=== PATIENT | male | born 1960 | race Caucasian/White ===

== ENCOUNTER 2017-05-08 08:17 | Observation (INO) | payer MEDICAID ==
[2017-05-08] MEDS ORDERED: ASPIRIN 81 MG PO STA (08:30)
[2017-05-08] MEDS ORDERED: NITROGLYCERIN OINT 1 INCH/GM PACKET TOPICAL STA (08:30)
--- NOTE | 2017-05-08 08:33 | ED ---
General Adult HPI - General Chief complaint: Chest Pain Stated complaint: Chest Pain Time Seen by Provider: 05/08/17 08:20 Source: patient, RN notes reviewed Mode of arrival: EMS Limitations: no limitations - History of Present Illness Initial comments: This is a 56-year-old male who presents emergency Department complaining that he woke up this morning had chest pain radiated to his arm. Patient states she also became very sweaty last about 15 minutes until the ambulance got there. Patient states when he had nitroglycerin took the pain away completely. Patient states currently is chest pain-free. Patient states he is a smoker. Patient states she also has a strong family history with his mother having heart disease at a very young age. Patient denies any recent fever chills or cough. Patient denies any history of high blood pressure high cholesterol or diabetes however the patient does admit that he doesn't go see his doctor. Patient states she also drinks at least a 12 pack of beer a day. - Related Data Home Medications Medication Instructions Recorded Confirmed Aspirin 975 mg PO ONCE PRN 05/08/17 05/08/17 Cyclobenzaprine [Flexeril] 10 mg PO DAILY PRN 05/08/17 05/08/17 HYDROcodone/APAP 10-325MG [[place] 1 tab PO DAILY PRN 05/08/17 05/08/17 10-325] Potassium 99 mg PO DAILY 05/08/17 05/08/17 Allergies Allergy/AdvReac Type Severity Reaction Status Date / Time No Known Allergies Allergy Verified 05/08/17 08:56 Review of Systems ROS Statement: Those systems with pertinent positive or pertinent negative responses have been documented in the HPI. ROS Other: All systems not noted in ROS Statement are negative. Past Medical History Past Medical History: Osteoarthritis (OA) Additional Past Medical History / Comment(s): bulging discs lumbar area & also neck problems-tingling lt leg, lt leg spasms History of Any Multi-Drug Resistant Organisms: None Reported Past Surgical History: Back Surgery Additional Past Surgical History / Comment(s): 08/04/15 Posterior lumbar decompression fusion transforaminal lumbar inerbody fusion L3-4, L4-5 with NIM. Other surgical HX: 02-15-15 LAMINECTOMY Additional Past Anesthesia/Blood Transfusion Reaction / Comment(s): no family problems that he's aware of. no hx blood transfusion Past Psychological History: No Psychological Hx Reported Smoking Status: Current every day smoker Past Alcohol Use History: Daily Past Drug Use History: Marijuana - Past Family History Mother Family Medical History: Cancer, CVA/TIA, Diabetes Mellitus, Myocardial Infarction ([place]) Additional Family Medical History / Comment(s): Mother in her 60's. Father History Unknown: Yes Family Medical History: No Reported History Additional Family Medical History / Comment(s): Father is 92 yrs old and healthy General Exam - General Exam Comments Initial Comments: GENERAL: Patient is well-developed and well-nourished. Patient is nontoxic and well- hydrated and is in no acute distress. ENT: Neck is soft and supple. No significant lymphadenopathy is noted. Oropharynx is clear. Moist mucous membranes. Neck has full range of motion without eliciting any pain. EYES: The sclera were anicteric and conjunctiva were pink and moist. Extraocular movements were intact and pupils were equal round and reactive to light. Eyelids were unremarkable. PULMONARY: Unlabored respirations. Good breath sounds bilaterally. No audible rales rhonchi or wheezing was noted. CARDIOVASCULAR: There is a regular rate and rhythm without any murmurs gallops or rubs. ABDOMEN: Soft and nontender with normal bowel sounds. No palpable organomegaly was noted. There is no palpable pulsatile mass. SKIN: Skin is clear with no lesions or rashes and otherwise unremarkable. NEUROLOGIC: Patient is alert and oriented x3. Cranial nerves II through XII are grossly intact. Motor and sensory are also intact. Normal speech, volume and content. Symmetrical smile. MUSCULOSKELETAL: Normal extremities with adequate strength and full range of motion. No lower extremity swelling or edema. No calf tenderness. LYMPHATICS: No significant lymphadenopathy is noted PSYCHIATRIC: Normal psychiatric evaluation. Normal interpersonal interactions appears functionally intact in deals appropriately with others. No signs of depression. No signs of anxiety. 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 Patient's chest x-ray shows no acute abnormality. I started the patient on heparin because of his significant symptoms and risk factors. I spoke with Dr. Jimenez he agreed to admit the patient admitted the patient I consult to cardiology continued heparin and aspirin and Nitropaste on the floor. - Lab Data Result diagrams: 05/08/17 08:34 05/08/17 09:13 Lab Results 05/08/17 05/08/17 05/08/17 Range/Units 08:34 09:13 09:13 WBC 6.3 (3.8-10.6) k/uL RBC 4.99 (4.30-5.90) m/uL Hgb 15.7 (13.0-17.5) gm/dL Hct 47.9 (39.0-53.0) % MCV 95.9 (80.0-100.0) fL MCH 31.4 (25.0-35.0) pg MCHC 32.8 (31.0-37.0) g/dL RDW 13.2 (11.5-15.5) % Plt Count 226 (150-450) k/uL Neutrophils % 59 % Lymphocytes % 27 % Monocytes % 5 % Eosinophils % 5 % Basophils % 1 % Neutrophils # 3.7 (1.3-7.7) k/uL Lymphocytes # 1.7 (1.0-4.8) k/uL Monocytes # 0.3 (0-1.0) k/uL Eosinophils # 0.3 (0-0.7) k/uL Basophils # 0.1 (0-0.2) k/uL PT (9.0-12.0) sec INR (<1.2) APTT (22.0-30.0) sec Sodium 139 (137-145) mmol/L Potassium 4.6 (3.5-5.1) mmol/L Chloride 104 (98-107) mmol/L Carbon Dioxide 26 (22-30) mmol/L Anion Gap 9 mmol/L BUN 18 (9-20) mg/dL Creatinine 0.90 (0.66-1.25) mg/dL Est GFR (MDRD) Af Amer >60 (>60 ml/min/1.73 sqM) Est GFR (MDRD) Non-Af >60 (>60 ml/min/1.73 sqM) Glucose 108 H (74-99) mg/dL Calcium 10.0 (8.4-10.2) mg/dL Magnesium 1.9 (1.6-2.3) mg/dL Total Bilirubin 0.4 (0.2-1.3) mg/dL AST 35 (17-59) U/L ALT 56 (21-72) U/L Alkaline Phosphatase 68 (38-126) U/L Total Creatine Kinase 98 (55-170) U/L CK-MB (CK-2) 0.7 (0.0-2.4) ng/mL CK-MB (CK-2) Rel Index 0.7 Troponin I <0.012 (0.000-0.034) ng/mL Total Protein 7.0 (6.3-8.2) g/dL Albumin 4.3 (3.5-5.0) g/dL 05/08/17 Range/Units 09:13 WBC (3.8-10.6) k/uL RBC (4.30-5.90) m/uL Hgb (13.0-17.5) gm/dL Hct (39.0-53.0) % MCV (80.0-100.0) fL MCH (25.0-35.0) pg MCHC (31.0-37.0) g/dL RDW (11.5-15.5) % Plt Count (150-450) k/uL Neutrophils % % Lymphocytes % % Monocytes % % Eosinophils % % Basophils % % Neutrophils # (1.3-7.7) k/uL Lymphocytes # (1.0-4.8) k/uL Monocytes # (0-1.0) k/uL Eosinophils # (0-0.7) k/uL Basophils # (0-0.2) k/uL PT 10.2 (9.0-12.0) sec INR 1.0 (<1.2) APTT 22.7 (22.0-30.0) sec Sodium (137-145) mmol/L Potassium (3.5-5.1) mmol/L Chloride (98-107) mmol/L Carbon Dioxide (22-30) mmol/L Anion Gap mmol/L BUN (9-20) mg/dL Creatinine (0.66-1.25) mg/dL Est GFR (MDRD) Af Amer (>60 ml/min/1.73 sqM) Est GFR (MDRD) Non-Af (>60 ml/min/1.73 sqM) Glucose (74-99) mg/dL Calcium (8.4-10.2) mg/dL Magnesium (1.6-2.3) mg/dL Total Bilirubin (0.2-1.3) mg/dL AST (17-59) U/L ALT (21-72) U/L Alkaline Phosphatase (38-126) U/L Total Creatine Kinase (55-170) U/L CK-MB (CK-2) (0.0-2.4) ng/mL CK-MB (CK-2) Rel Index Troponin I (0.000-0.034) ng/mL Total Protein (6.3-8.2) g/dL Albumin (3.5-5.0) g/dL Critical Care Time Critical Care Time: Yes Total Critical Care Time: 35 Disposition Clinical Impression: Unstable angina pectoris Disposition: ADMITTED IP TO THIS HOSP Referrals: Walter Jimenez MD [Primary Care Provider] - 1-2 days Time of Disposition: 11:26
[2017-05-08 09:00] LABS: Basophils # (A) 0.1 k/uL (0-0.2); Basophils % (A) 1 %; Eosinophils # (A) 0.3 k/uL (0-0.7); Eosinophils % (A) 5 %; HCT 47.9 % (39.0-53.0); HGB 15.7 gm/dL (13.0-17.5); Lymphocytes # (A) 1.7 k/uL (1.0-4.8); Lymphocytes % (A) 27 %; MCH 31.4 pg (25.0-35.0); MCHC 32.8 g/dL (31.0-37.0); MCV 95.9 fL (80.0-100.0); Mean Platelet Volume 7.5; Monocytes # (A) 0.3 k/uL (0-1.0); Monocytes % (A) 5 %; Neutrophils # (A) 3.7 k/uL (1.3-7.7); Neutrophils % (A) 59 %; Platelet Count 226 k/uL (150-450); RBC 4.99 m/uL (4.30-5.90); RDW 13.2 % (11.5-15.5); WBC 6.3 k/uL (3.8-10.6)
--- NOTE | 2017-05-08 09:13 | XR ---
EXAMINATION TYPE: XR chest 2V DATE OF EXAM: 05/08/2017 COMPARISON: Prior chest x-ray 07/26/2015 HISTORY: Chest pain TECHNIQUE: Frontal and lateral views of the chest are obtained. FINDINGS: There is no focal air space opacity, pleural effusion, or pneumothorax seen. The cardiac silhouette size is within normal limits. There are overlying cardiac leads. There is mild spinal curv ature. The osseous structures are intact. IMPRESSION: No acute cardiopulmonary process.
[2017-05-08] MEDS ORDERED: NICOTINE 21MG/24HR PATCH TRANSDERM STA (09:34)
[2017-05-08 09:37] LABS: ALT 56 U/L (21-72); AST 35 U/L (17-59); Albumin 4.3 g/dL (3.5-5.0); Alkaline Phosphatase 68 U/L (38-126); Anion Gap 9 mmol/L; Blood Urea Nitrogen 18 mg/dL (9-20); Carbon Dioxide 26 mmol/L (22-30); Chloride 104 mmol/L (98-107); Glucose 108 mg/dL (74-99); Magnesium 1.9 mg/dL (1.6-2.3); Sodium 139 mmol/L (137-145); Total Bilirubin 0.4 mg/dL (0.2-1.3)
[2017-05-08 09:38] LABS: Potassium 4.6 mmol/L (3.5-5.1)
[2017-05-08 09:56] LABS: Creatine Kinase 98 U/L (55-170)
[2017-05-08 09:58] LABS: Partial Thromboplastin Time 22.7 sec (22.0-30.0); Prothrombin Time 10.2 sec (9.0-12.0)
[2017-05-08 10:09] LABS: Creatine Kinase MB 0.7 ng/mL (0.0-2.4); Troponin I <0.012 ng/mL (0.000-0.034)
[2017-05-08 10:49] VITALS: RESP 18
[2017-05-08] MEDS ORDERED: NITROGLYCERIN SL TABS 0.4 MG TAB SUBLINGUAL PRN (11:26)
[2017-05-08] MEDS ORDERED: HEPARIN SODIUM,PORCINE 5,000 UNIT/ML 1 ML VIAL IV ONE (11:28)
[2017-05-08] MEDS ORDERED: HEPARIN SOD,PORK IN 0.45% NACL 25,000 UNIT in 0.45% NACL 1 500ML.BAG IV SCH (11:45)
--- NOTE | 2017-05-08 13:01 | P.HPIM ---
History of Present Illness H&P Date: 05/08/17 Chief Complaint: Chest pain and right-sided numbness. This is a 56-year-old male one of my patient with a previous medical history significant for chronic tobacco use and dependence and COPD, history of chronic alcohol use and dependence along with a chronic low back pain status post laminectomy of L4-L5 followed by a decompression laminectomy with fusion of L3-L4 L4-L5 that was done back in 2 years ago, patient has not been following up with me in the office for quite some time, patient was driving to work in the morning when he developed to have right-sided chest tightness associated with right upper extremity and right lower extremity numbness and he was having legs cramps the night brfore every hour along with that, ended up going to the ER at [facility] had an EKG that showed normal sinus rhythm and no acute ischemic changes, cardiac enzymes are negative he had slight elevation of the his blood pressure on initial evaluation he was given nitroglycerin under the tongue 2 with relief of his pain and numbness and patient was admitted to the hospital for further evaluation. Patient stated that his last drink about 4 days ago he had 12 case of beer. Review of Systems Constitutional: Denies chronic headaches, Denies chronic pain, Denies lethargy, Denies weight gain, Denies weight loss Eyes: denies blurred vision, denies bulging eye, denies decreased vision, denies diplopia Ears: deny: decreased hearing Ears, nose, mouth and throat: Denies dysphagia, Denies neck lump, Denies swelling in throat, Denies sore throat, Denies vertigo Cardiovascular: Reports chest pain, Reports decreased exercise tolerance, Reports dyspnea on exertion, Reports high blood pressure, Denies phlebitis, Denies rapid heart beat, Denies shortness of breath, Denies syncope Respiratory: Denies congestion, Denies cough, Denies cough with sputum, Denies home oxygen, Denies sleep apnea, Denies snoring, Denies wheezing Gastrointestinal: Denies abdominal pain, Denies bloating, Denies BRBPR, Denies early satiety, Denies excessive gas, Denies heartburn, Denies melena, Denies nausea, Denies vomiting Genitourinary: Denies dysuria, Denies nocturia, Denies polyuria Musculoskeletal: Reports leg numbness/tingling, Reports low back pain, Reports shooting leg pain, Denies myalgias Musculoskeletal: absent: ankle pain, ankle stiffness, ankle swelling, elbow pain , elbow stiffness, elbow swelling, foot pain, foot stiffness, foot swelling, hand pain, hand stiffness, hand swelling, hip pain, hip stiffness, hip swelling , knee pain, knee stiffness, knee swelling, shoulder pain, shoulder stiffness, shoulder swelling, wrist pain, wrist stiffness, wrist swelling Integumentary: Denies pruritus, Denies rash Neurological: Denies numbness, Denies weakness Psychiatric: Denies anxiety, Denies depression Endocrine: Denies fatigue, Denies weight change Past Medical History Past Medical History: Hyperlipidemia, Hypertension, Musculoskeletal Disorder, Osteoarthritis (OA) Additional Past Medical History / Comment(s): bulging discs lumbar area & also neck problems-tingling lt leg, lt leg spasms History of Any Multi-Drug Resistant Organisms: None Reported Past Surgical History: Back Surgery Additional Past Surgical History / Comment(s): 08/04/15 Posterior lumbar decompression fusion transforaminal lumbar inerbody fusion L3-4, L4-5 with NIM. Other surgical HX: 02-15-15 LAMINECTOMY Additional Past Anesthesia/Blood Transfusion Reaction / Comment(s): no family problems that he's aware of. no hx blood transfusion Past Psychological History: No Psychological Hx Reported Smoking Status: Current every day smoker (Patient smoked about one and half pack -a-day smoker for many years.) Past Alcohol Use History: Daily, Heavy (Patient drinks 12 case of beer very frequently) Past Drug Use History: Marijuana - Past Family History Mother Family Medical History: Cancer, CVA/TIA (Mother in her 60s from the acute CVA she did have 3 MIs and 3 CVA.), Diabetes Mellitus, Myocardial Infarction ([place] ) Additional Family Medical History / Comment(s): Mother in her 60's. Father History Unknown: Yes Family Medical History: No Reported History (Father is 94-year-old and is healthy.) Additional Family Medical History / Comment(s): Father is 92 yrs old and healthy Brother(s) Family Medical History: No Reported History (Patient has 2 brothers no major medical problems.) Sister(s) Family Medical History: No Reported History (Patient has 3 sisters one of them fell and ended up paraplegic due to spinal cord injury.) Son(s) Family Medical History: No Reported History (Patient has one son no major medical problems.) Daughter(s) Family Medical History: No Reported History (She has 2 step daughters no major medical problems.) Medications and Allergies Home Medications Medication Instructions Recorded Confirmed Type Aspirin 975 mg PO ONCE PRN 05/08/17 05/08/17 History Cyclobenzaprine [Flexeril] 10 mg PO DAILY PRN 05/08/17 05/08/17 History HYDROcodone/APAP 10-325MG [[place] 1 tab PO DAILY PRN 05/08/17 05/08/17 History 10-325] Potassium 99 mg PO DAILY 05/08/17 05/08/17 History Allergies Allergy/AdvReac Type Severity Reaction Status Date / Time No Known Allergies Allergy Verified 05/08/17 08:56 Physical Exam Vitals: Vital Signs Temp Pulse Pulse Resp BP Pulse Ox 05/08/17 12:11 74 18 102/74 97 05/08/17 10:43 73 18 102/68 99 05/08/17 09:55 71 19 114/73 98 05/08/17 08:40 70 05/08/17 08:18 98.2 F 70 18 137/77 Intake and Output 05/07/17 05/08/17 05/08/17 22:59 06:59 14:59 Other: Weight 74.843 kg Patient Weight 05/09/17 06:59 Weight 74.843 kg - Constitutional General appearance: average body habitus, no acute distress - EENT Eyes: anicteric sclerae, EOMI, PERRLA, ptosis, no scleral icterus, normal appearance ENT: hearing grossly normal, NA/AT, normal oropharynx, no thrush, no tonsillar exudates, no tonsillar swelling Ears: bilateral: normal - Neck Neck: no lymphadenopathy, normal ROM, no rigidity, no stridor, no thyromegaly Carotids: bilateral: upstroke normal Thyroid: bilateral: normal size - Respiratory Respiratory: bilateral: diminished, prolonged expiration, negative: dullness, rales, rhonchi, wheezing - Cardiovascular Rhythm: regular Heart sounds: normal: S1, S2 Abnormal Heart Sounds: no S3 Gallop, no S4 Gallop, no click - Gastrointestinal General gastrointestinal: normal bowel sounds, soft, no splenomegaly, no tenderness, no umbilical hernia, no ventral hernia - Integumentary Integumentary: normal, normal turgor - Musculoskeletal Musculoskeletal: strength equal bilaterally - Psychiatric Psychiatric: A&O x's 3, appropriate affect, intact judgment & insight Results CBC & Chem 7: 05/08/17 08:34 05/08/17 09:13 Labs: Abnormal Lab Results - Last 24 Hours (Table) 05/08/17 Range/Units 09:13 Glucose 108 H (74-99) mg/dL Thrombosis Risk Factor Assmnt - DVT/VTE Prophylaxis DVT/VTE Prophylaxis: Pharmacologic Prophylaxis ordered Assessment and Plan Assessment: Assessment and plan: 1. Right-sided chest pain with right sided numbness. This does not appear to be cardiac however the patient does appear to have a few risk factors for heart disease, EKG does not show any evidence of acute changes, her enzymes are negative, keep the patient on aspirin 325 mg once every day, nitroglycerin paste 1 inch every 6 hours, heparin drip for now, if the cardiac enzymes are negative patient will go for stress test tomorrow morning. Patient was counseled about risk factor modifications and total lifestyle changes including smoking cessation and abstinence from alcohol. 2. Chronic tobacco use and dependence. Smoking cessation and counseling an increased risk of CAD, SHAUN, and malignancy. 3. Chronic alcohol use and dependence. Monitor the patient very closely. Last drink was about 4 days ago. Abstinence from alcohol. 4. Postlaminectomy syndrome. Currently on baclofen 10 mg orally twice every day as well as [place]. 5. Elevated blood pressure without the diagnosis of hypertension. Monitor the patient blood pressure very closely. 6. DVT prophylaxis. Currently on heparin drip. 7. GI prophylaxis currently on Pepcid. 8. Observation. 9. Full code.
[2017-05-08] MEDS: NITROGLYCERIN OINT 1 INCH/GM PACKET TOPICAL SCH ×2 (14:05→18:02)
[2017-05-08] MEDS ORDERED: ASPIRIN 325 MG TAB PO PRN (14:07)
[2017-05-08] MEDS: BACLOFEN 10 MG TAB PO SCH ×2 (15:26→20:30)
[2017-05-08] MEDS: HYDROcodone/APAP 10-325MG 1 EACH TAB PO PRN ×2 (15:26→20:32)
[2017-05-08 15:31] LABS: Creatine Kinase 77 U/L (55-170)
[2017-05-08 15:44] LABS: Creatine Kinase MB 0.4 ng/mL (0.0-2.4); Troponin I <0.012 ng/mL (0.000-0.034)
[2017-05-08] MEDS ORDERED: HEPARIN SODIUM,PORCINE 5,000 UNIT/ML 1 ML VIAL IV PRN (18:54)
[2017-05-08 21:40] LABS: Creatine Kinase 71 U/L (55-170)
[2017-05-08 21:54] LABS: Creatine Kinase MB 0.2 ng/mL (0.0-2.4); Troponin I <0.012 ng/mL (0.000-0.034)
[2017-05-09] MEDS: NITROGLYCERIN OINT 1 INCH/GM PACKET TOPICAL SCH ×2 (01:01→05:57)
[2017-05-09 01:02] LABS: Cholesterol 159 mg/dL (<200); HDL Cholesterol 72 mg/dL (40-60); LDL Cholesterol,Calculated 73 mg/dL (0-99); Triglycerides 72 mg/dL (<150)
[2017-05-09] MEDS ORDERED: ASPIRIN 325 MG TAB PO SCH (09:00)
[2017-05-09] MEDS ORDERED: POTASSIUM CHLORIDE ORAL LIQUID 40 MEQ/30 ML CUP PO SCH (09:00)
--- NOTE | 2017-05-09 11:00 | P.CRDCN ---
History of Present Illness Consult date: 05/09/17 History of present illness: Mr. Clement is a pleasant 56-year-old male past medical history significant for hypertension, dyslipidemia, chronic tobacco use, daily alcohol intake and daily marijuana use. 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 He states while he was driving to work yesterday morning he began experiencing numbness and tingling in the entire right side of his body as well as a sharp pain under the left breast. He also had associated dizziness. He denies shortness of breath, palpitations, nausea, vomiting or diaphoresis. This sensation persisted for approximately 30 minutes. EMS gave him nitroglycerin 2 and this pain went away. He felt increasingly dizzy after recieving the nitroglycerin but the chest pain subsided. He has had no further episodes since admission. Telemetry tracings are unremarkable. EKG reveals sinus mechanism with flattening T-waves in inferior leads. Chest xray is negative for an acute cardiopulmonary process. Most recent Lexiscan 2015 is negative for reversible ischemia. Laboratory data reviewed, hemoglobin 15.7, platelets 226, potassium 4.6, magnesium 1.9, creatinine 0.9, cardiac enzymes negative 3, LDL 73, HDL 72. He takes no cardiac medications. Review of Systems At the time of my exam: CONSTITUTIONAL: Denies fever. Denies chills. EYES: Denies blurred vision. Denies vision changes. Denies eye pain. EARS, NOSE, MOUTH & THROAT: Denies headache. Denies sore throat. Denies ear pain. CARDIOVASCULAR: Denies chest pain. Denies shortness of breath. Denies orthopnea. Denies PND. Denies palpitations. RESPIRATORY: Denies cough. GASTROINTESTINAL: Denies abdominal pain. Denies diarrhea. Denies constipation. Denies nausea. Denies vomiting. MUSCULOSKELETAL: Denies myalgias. INTEGUMENTARY: Denies pruitis. Denies rash. NEUROLOGIC: Denies numbness. Denies tingling. Denies weakness. PSYCHIATRIC: Denies anxiety. Denies depression. ENDOCRINE: Denies fatigue. Denies weight change. Denies polydipsia. Denies polyurina. GENITOURINARY: Denies burning, hematuria or urgency with micturation. HEMATOLOGIC: Denies history of anemia. Denies bleeding. Past Medical History Past Medical History: Hyperlipidemia, Hypertension, Musculoskeletal Disorder, Osteoarthritis (OA) Additional Past Medical History / Comment(s): bulging discs lumbar area & also neck problems-tingling lt leg, lt leg spasms History of Any Multi-Drug Resistant Organisms: None Reported Past Surgical History: Back Surgery Additional Past Surgical History / Comment(s): 08/04/15 Posterior lumbar decompression fusion transforaminal lumbar inerbody fusion L3-4, L4-5 with NIM. Other surgical HX: 02-15-15 LAMINECTOMY Additional Past Anesthesia/Blood Transfusion Reaction / Comment(s): no family problems that he's aware of. no hx blood transfusion Past Psychological History: No Psychological Hx Reported Smoking Status: Current every day smoker (Patient smoked about one and half pack -a-day smoker for many years.) Past Alcohol Use History: Daily, Heavy (Patient drinks 12 case of beer very frequently) Past Drug Use History: Marijuana - Past Family History Brother(s) Family Medical History: No Reported History (Patient has 2 brothers no major medical problems.) Sister(s) Family Medical History: No Reported History (Patient has 3 sisters one of them fell and ended up paraplegic due to spinal cord injury.) Son(s) Family Medical History: No Reported History (Patient has one son no major medical problems.) Daughter(s) Family Medical History: No Reported History (She has 2 step daughters no major medical problems.) Mother Family Medical History: Cancer, CVA/TIA (Mother in her 60s from the acute CVA she did have 3 MIs and 3 CVA.), Diabetes Mellitus, Myocardial Infarction ([place] ) Additional Family Medical History / Comment(s): Mother in her 60's. Father History Unknown: Yes Family Medical History: No Reported History (Father is 94-year-old and is healthy.) Additional Family Medical History / Comment(s): Father is 92 yrs old and healthy Medications and Allergies Home Medications Medication Instructions Recorded Confirmed Type Aspirin 975 mg PO ONCE PRN 05/08/17 05/08/17 History Cyclobenzaprine [Flexeril] 10 mg PO DAILY PRN 05/08/17 05/08/17 History HYDROcodone/APAP 10-325MG [[place] 1 tab PO DAILY PRN 05/08/17 05/08/17 History 10-325] Potassium 99 mg PO DAILY 05/08/17 05/08/17 History Allergies Allergy/AdvReac Type Severity Reaction Status Date / Time No Known Allergies Allergy Verified 05/08/17 08:56 Physical Exam Vitals: Vital Signs Temp Pulse Pulse Pulse Resp BP BP 05/09/17 04:00 98 F 74 73 18 113/75 05/08/17 23:53 98.1 F 68 18 123/71 05/08/17 23:18 70 18 05/08/17 20:00 72 18 05/08/17 19:38 98.3 F 73 18 121/72 05/08/17 19:14 05/08/17 14:00 18 05/08/17 13:54 98.4 F 60 18 128/73 05/08/17 13:29 98.2 F 74 18 102/74 05/08/17 12:11 74 18 102/74 05/08/17 10:43 73 18 102/68 05/08/17 09:55 71 19 114/73 05/08/17 08:40 70 05/08/17 08:18 98.2 F 70 18 137/77 Pulse Ox 05/09/17 04:00 100 05/08/17 23:53 98 05/08/17 23:18 05/08/17 20:00 05/08/17 19:38 99 05/08/17 19:14 98 05/08/17 14:00 05/08/17 13:54 100 05/08/17 13:29 97 05/08/17 12:11 97 05/08/17 10:43 99 05/08/17 09:55 98 05/08/17 08:40 05/08/17 08:18 Intake and Output 05/08/17 05/09/17 05/09/17 22:59 06:59 14:59 Intake Total 744.523 Balance 744.523 Intake: Intake, IV Titration 124.523 Amount Heparin Sod,Pork in 0.45% 124.523 NaCl 25,000 unit In 0.45 % NaCl 1 500ml.bag @ 12 UNITS/KG/HR 17.96 mls/hr IV .Q24H SUNG Rx#: [id number] Oral 420 Other 200 Other: # Voids 2 3 Blood pressure 130/82 heart rate 63 afebrile GENERAL: This is a 56-year-old male in no apparent distress at the time of my examination. HEENT: Head is atraumatic, normocephalic. Pupils are equal, round. Sclerae anicteric. Conjunctivae are clear. Mucous membranes of the mouth are moist. Neck is supple. There is no jugular venous distention. No carotid bruit is heard. LUNGS: Faint expiratory wheezing evident. No rales or rhonchi. No chest wall tenderness is noted on palpation or with deep breathing. HEART: Regular rate and rhythm without murmurs, rubs or gallops. S1 and S2 heard. ABDOMEN: Soft, nontender. Bowel sounds are heard. No organomegaly noted. EXTREMITIES: No evidence of peripheral edema and no calf tenderness noted. VASCULAR: Radial and dorsalis pedis pulses palpated, no evidence of clubbing. NEUROLOGIC: Patient is awake, alert and oriented x3. Results 05/08/17 08:34 05/08/17 09:13 Cardiac Enzymes 05/08/17 05/08/17 05/08/17 Range/Units 09:13 09:13 14:50 AST 35 (17-59) U/L CK-MB (CK-2) 0.7 0.4 (0.0-2.4) ng/mL Troponin I <0.012 <0.012 (0.000-0.034) ng/mL 05/08/17 Range/Units 20:48 AST (17-59) U/L CK-MB (CK-2) 0.2 (0.0-2.4) ng/mL Troponin I <0.012 (0.000-0.034) ng/mL Coagulation 05/08/17 05/08/17 05/09/17 Range/Units 09:13 18:12 00:36 PT 10.2 (9.0-12.0) sec APTT 22.7 31.2 H 55.2 H (22.0-30.0) sec Lipids 05/09/17 Range/Units 00:36 Triglycerides 72 (<150) mg/dL Cholesterol 159 (<200) mg/dL HDL Cholesterol 72 H (40-60) mg/dL CBC 05/08/17 Range/Units 08:34 WBC 6.3 (3.8-10.6) k/uL RBC 4.99 (4.30-5.90) m/uL Hgb 15.7 (13.0-17.5) gm/dL Hct 47.9 (39.0-53.0) % Plt Count 226 (150-450) k/uL Comprehensive Metabolic Panel 05/08/17 Range/Units 09:13 Sodium 139 (137-145) mmol/L Potassium 4.6 (3.5-5.1) mmol/L Chloride 104 (98-107) mmol/L Carbon Dioxide 26 (22-30) mmol/L BUN 18 (9-20) mg/dL Creatinine 0.90 (0.66-1.25) mg/dL Glucose 108 H (74-99) mg/dL Calcium 10.0 (8.4-10.2) mg/dL AST 35 (17-59) U/L ALT 56 (21-72) U/L Alkaline Phosphatase 68 (38-126) U/L Total Protein 7.0 (6.3-8.2) g/dL Albumin 4.3 (3.5-5.0) g/dL Current Medications Generic Name Dose Route Start Last Admin Trade Name Freq PRN Reason Stop Dose Admin Hydrocodone Bitart/Acetaminophen 1 each 05/08/17 14:07 05/08/17 20:32 Jenks 10 PO 1 each DAILY PRN Administration Pain Aspirin 325 mg 05/09/17 09:00 Aspirin PO DAILY SUNG Baclofen 10 mg 05/08/17 12:45 05/08/17 20:30 Lioresal PO 10 mg BID SUNG Administration Heparin Sodium (Porcine) 0 unit 05/08/17 18:54 05/08/17 18:59 Heparin IV 4,000 unit PER PROTOCOL PRN Administration Low PTT Protocol Heparin Sodium/Sodium Chloride 500 mls @ 17.96 mls/hr 05/08/17 11:45 18:57 25,000 unit/ Sodium Chloride IV 15 units/kg/hr .Q24H SUNG 22.45 mls/hr Protocol Titration 12 UNITS/KG/HR Nitroglycerin 1 inch 05/08/17 13:00 05/09/17 05:57 Nitro-Bid Oint TOPICAL Not Given Q6HR [facility] Nitroglycerin 0.4 mg 05/08/17 11:26 Nitrostat SUBLINGUAL Q5M PRN Chest Pain Potassium Chloride 2.5 meq 05/09/17 09:00 Potassium Chloride Oral Liquid PO DAILY SUNG Intake and Output 05/08/17 05/09/17 05/09/17 22:59 06:59 14:59 Intake Total 744.523 Balance 744.523 Intake: Intake, IV Titration 124.523 Amount Heparin Sod,Pork in 0.45% 124.523 NaCl 25,000 unit In 0.45 % NaCl 1 500ml.bag @ 12 UNITS/KG/HR 17.96 mls/hr IV .Q24H SUNG Rx#: [id number] Oral 420 Other 200 Other: # Voids 2 3 05/08/17 08:34 05/08/17 09:13 Assessment and Plan Assessment: ASSESSMENT 1. Chest pain, atypical. Acute coronary event has been ruled out. 2. Remote history of hypertension per medical record, not currently on medication and the patient denies having ever been treated. 3. Daily alcohol abuse 4. Daily marijuana use 5. Chronic tobacco use PLAN Obtain 2D echocardiogram and doppler study to assess cardiac structure and function. Perform exercise stress echocardiogram to evaluate for stress induced ischemia. Strongly recommend cessation of tobacco, alcohol and marijuana. Thank you kindly for this consultation. The above impression and plan of care have been discussed and directed by the signing physician. Nelli Rolle, nurse practitioner, acting as scribe for signing physician.
--- NOTE | 2017-05-09 12:10 | ECHOS ---
STRESS ECHOCARDIOGRAM DATE OF SERVICE: 05/09/2017. INDICATIONS: Chest pain. MEDICATIONS: Flexeril, Golden. BASELINE HEART RATE: 80 BASELINE BLOOD PRESSURE: 133/76 MAXIMUM HEART RATE: 153 MAXIMUM BLOOD PRESSURE: 156/66 85% MPHR: 139 100% MPHR: 164 METS: 9 MAXIMUM STAGE REACHED: III TOTAL EXERCISE TIME: 8 minutes CLINICAL INFORMATION: Baseline EKG shows sinus rhythm, normal axis, normal intervals. The patient exercised on Jeramie protocol for a total of 8 minutes achieving 9 METs, 93% of predicted maximal heart rate without chest pain or diagnostic ST-segment depression. Baseline echo shows normal left ventricular size, wall motion and systolic function. Postexercise, there is normal hyperdynamic response of all segments of myocardium noted. CONCLUSIONS: 1. Good exercise tolerance. 2. Negative stress test by EKG criteria. 3. Negative stress echo. JEAN / CECILN: [id number] /
[2017-05-09 12:22] VITALS: BP 127/87; PULSE 76; TEMP 98.5
[2017-05-09] MEDS: BACLOFEN 10 MG TAB PO SCH (12:34)
--- NOTE | 2017-05-09 13:18 | P.DS ---
Providers Date of admission: 05/08/17 11:26 Expected date of discharge: 05/09/17 Attending physician: Walter Jimenez Consults: 05/08/17 11:26 Consult Physician Urgent Consulting Provider: [facility] Consult Reason/Comments: Unstable angina Do you want consulting provider notified?: Yes Primary care physician: Walter Jimenez Hospital Course: This is a 56-year-old male one of my patient with a previous medical history significant for chronic tobacco use and dependence and COPD, history of chronic alcohol use and dependence along with a chronic low back pain status post laminectomy of L4-L5 followed by a decompression laminectomy with fusion of L3-L4 L4-L5 that was done back in 2 years ago, patient has not been following up with me in the office for quite some time, patient was driving to work in the morning when he developed to have right-sided chest tightness associated with right upper extremity and right lower extremity numbness and he was having legs cramps the night brfore every hour along with that, [facility] that showed normal sinus rhythm and no acute ischemic changes, cardiac enzymes are negative he had slight elevation of the his blood pressure on initial evaluation he was given nitroglycerin under the tongue 2 with relief of his pain and numbness and patient was admitted to the hospital for further evaluation. Patient stated that his last drink about 4 days ago he had 12 case of beer. 05/09: Troponins have been negative on 3 draws. Triglyceride 72, cholesterol 159 , LDL 73, HDL 72. Stress echo is negative and echocardiogram has been done but report is pending. Patient will be discharged in stable condition. Discharge diagnoses: 1. Right-sided chest pain with right sided numbness. 2. Chronic tobacco use and dependence. 3. Chronic alcohol use and dependence. 4. Postlaminectomy syndrome. 5. Elevated blood pressure without the diagnosis of hypertension. Discharge plan: Home Impression and plan of care have been directed as dictated by the signing physician. Rosana Boggs nurse practitioner acting as scribe for signing physician. Patient Condition at Discharge: Good Plan - Discharge Summary Discharge Rx Participant: No New Discharge Prescriptions: New Baclofen [Lioresal] 10 mg PO BID #60 tab Continue Aspirin 975 mg PO ONCE PRN PRN Reason: Chest Pain Potassium 99 mg PO DAILY Changed HYDROcodone/APAP 10-325MG [[place] 10-325] 1 tab PO BID #60 tab Discontinued Cyclobenzaprine [Flexeril] 10 mg PO DAILY PRN PRN Reason: Muscle Spasm Discharge Medication List Aspirin 325 mg PO ONCE PRN 05/08/17 [History] Potassium 99 mg PO DAILY 05/08/17 [History] Baclofen [Lioresal] 10 mg PO BID #60 tab 05/09/17 [Rx] HYDROcodone/APAP 10-325MG [[place] 10-325] 1 tab PO BID #60 tab 05/09/17 [Rx] Follow up Appointment(s)/Referral(s): Walter Jimenez MD [Primary Care Provider] - 1 Week Juan David Luo MD [STAFF PHYSICIAN] - 2 Weeks Discharge Disposition: HOME SELF-CARE
--- NOTE | 2017-05-10 10:12 | ECHOF ---
Referral Reason:chest pain MEASUREMENTS -------- HEIGHT: 172.7 cm WEIGHT: 76.7 kg BP: 130/76 IVSd: 1.3 cm (0.6 - 1.1) LVIDd: 3.4 cm (3.9 - 5.3) LVPWd: 1.1 cm (0.6 - 1.1) IVSs: 1.8 cm LVIDs: 2.1 cm LVPWs: 1.7 cm Ao Diam: 3.3 cm (2.0 - 3.7) AV Cusp: 1.9 cm (1.5 - 2.6) LA Diam: 3.2 cm (2.7 - 3.8) MV EXCURSION: 22.169 mm (> 18.000) MV EF SLOPE: 166 mm/s (70 - 150) EPSS: 0.2 cm MV E Andre: 0.45 m/s MV DecT: 192 ms MV A Andre: 0.56 m/s MV E/A Ratio: 0.82 RAP: 5.00 mmHg RVSP: 24.23 mmHg FINDINGS -------- Sinus rhythm. This was a technically good study. The left ventricular size is normal. There is borderline concentric left ventricular hypertrophy. Overall left ventricular systolic function is normal with, an EF between 55 - 60 %. The right ventricle is normal in size and function. The left atrium is normal in size. The right atrium is normal in size. The aortic valve is trileaflet, and appears structurally normal. No aortic stenosis or regurgitation. Mild mitral annular calcification present. There is trace mitral regurgitation. Trace tricuspid regurgitation present. The right ventricular systolic pressure, as measured by Dopp ler, is 24.23mmHg. Pulmonic valve appears structurally normal. The aortic root, ascending aorta and aortic arch are normal. Normal inferior vena cava with normal inspiratory collapse consistent with estimated right atrial pre ssure of 5 mmHg. The pericardium is normal. CONCLUSIONS -------- 1. Sinus rhythm. 2. This was a technically good study. 3. The left ventricular size is normal. 4. There is borderline concentric left ventricular hypertrophy. 5. Overall left ventricular systolic function is normal with, an EF between 55 - 60 %. 6. The right ventricle is normal in size and function. 7. The left atrium is normal in size. 8. The right atrium is normal in size. 9. The aortic valve is trileaflet, and appears structurally normal. No aortic stenosis or regurgitati on. 10. Mild mitral annular calcification present. 11. There is trace mitral regurgitation. 12. Trace tricuspid regurgitation present. 13. The right ventricular systolic pressure, as measured by Doppler, is 24.23mmHg. 14. Pulmonic valve appears structurally normal. 15. The aortic root, ascending aorta and aortic arch are normal. 16. Normal inferior vena cava with normal inspiratory collapse consistent with estimated right atrial pressure of 5 mmHg. 17. The pericardium is normal. RN NURSERY: Moriah Fan RDCS
== END 2017-05-09 12:52 | disposition home or self-care (01) ==
LOC: EC 08:17 → 3OBS 11:26
PROVIDERS: ADMIT Internal Medicine; ATTEND Internal Medicine
DX: R07.89 Other chest pain (principal); R20.0 Anesthesia of skin; F17.210 Nicotine dependence, cigarettes, uncomplicated; F10.20 Alcohol dependence, uncomplicated; M96.1 Postlaminectomy syndrome, not elsewhere classified; R03.0 Elevated blood-pressure reading, without diagnosis of hypertension; R61 Generalized hyperhidrosis; R25.2 Cramp and spasm; Z98.1 Arthrodesis status; R42 Dizziness and giddiness; R20.2 Paresthesia of skin; J44.9 Chronic obstructive pulmonary disease, unspecified; M54.5 Low back pain; G89.29 Other chronic pain; Z82.49 Family history of ischemic heart disease and other diseases of the circulatory system; Z79.899 Other long term (current) drug therapy; M19.90 Unspecified osteoarthritis, unspecified site; Z83.3 Family history of diabetes mellitus; Z82.3 Family history of stroke
CPT/HCPCS: 99291; 96376 ×2; 96365 ×2; 96366 ×4; 36415; 94760; 93005; 93017; 93306; 93350; 80061; 80053; 82550; 82553; 83735; 84484; 85025; 85610; 85730 ×2; 71046; G0378 ×2; S4990; J1644 ×2